=== PATIENT | female | born 1975 | race Caucasian/White ===

== ENCOUNTER → 2016-04-29 | Day surgery (SDC) | payer OTHER ==
[~2016-04-29] MED LIST: APREPITANT 40 MG CAP ONE; BUPIVACAINE HCL PF 0.75% 30 ML VIAL ONE; LACTATED RINGER'S 1000 ML INJ 1,000 ML ONE; LIDOCAINE 1.5%/EPINEPHrine 1:200,000 PF SOLN 30 ML AMP ONE; MIDAZOLAM HCL 5 MG/ML VIAL (1 ML) ONE; ONDANSETRON HCL 4 MG/2 ML VIAL IV PUSH ONE; PROPOFOL 500 MG/50 ML BTL IV ONE; ceFAZolin 2 GM PREMIX 50 ML ONE
--- NOTE | 2016-04-30 19:24 | MP ---
cc: JUAN CARLOS OSMAN DATE OF SURGERY 04/29/16 PREOPERATIVE DIAGNOSIS 1. Right shoulder rotator cuff tendon tear 2. Right shoulder impingement syndrome 3. Right shoulder labral SLAP tear. POSTOPERATIVE DIAGNOSES 1. Right shoulder rotator cuff tendon tear 2. Right shoulder impingement syndrome 3. Right shoulder labral SLAP tear. PROCEDURE 1. Right shoulder arthroscopic rotator cuff repair 2. right shoulder arthroscopic subacromial decompression 3. right shoulder arthroscopic extensive debridement of labral SLAP tear. SURGEON Dr. Dean Osman [employer]CTION WORKER PAUL Zamora ANESTHESIA General with an interscalene block. ESTIMATED BLOOD LOSS Less than 10 mL COMPLICATIONS None. IMPLANTS USED Arthrex JUSTIFICATION This patient is a 40-year-old female who sustained an injury to the right shoulder with persistent symptoms of progressive pain and weakness. She has failed nonoperative conservative treatment. MRI confirmed the above-named findings. The patient was counseled as to risks, benefits and alternatives of the above-named proposed surgical procedure. She did wish to proceed with surgery. PROCEDURE IN DETAIL A written consent obtained. The patient was identified by name, taken to the operating room, placed supine on the operating table. General anesthesia was administered as well as 2 grams of IV Ancef. She did receive preoperative interscalene block. The patient carefully turned to the left lateral decubitus position. A lateral arm roll was placed. All bony prominences and pressure points were well padded. The patient's neck was carefully monitored and kept neutral. An arthroscopic arm chiang was gently applied to right upper extremity with 10 pounds of traction placed. The right shoulder prepped and draped using isopropyl alcohol, Hibiclens solution and DuraPrep solution. A standard posterior and anterior glenohumeral arthroscope portal was established. The glenohumeral joint revealed evidence of extensive labral tearing along the anterior, superior and posterior portions of the labrum. An arthroscopic shaver was introduced into anterior portal. An extensive synovectomy and debridement was performed of the glenohumeral joint to include the 3 o'clock position up to the 12 o'clock position all the way back down to the 9 o'clock position. The biceps origin was intact. Minimal chondromalacia of the glenohumeral joint was noted. Attention was turned to the subacromial space. There was evidence of severe impingement bursitis. An arthroscopic shaver was introduced through a lateral portal. A subacromial decompression was performed. The shaver was used for perform a bursectomy. An arthroscopic bur was used to perform an acromioplasty and the cautery device was used to release the coracoacromial ligament. There was evidence of a full-thickness rotator cuff tendon tear at the supraspinatus attachment site. A bur was used to decorticate the greater tuberosity in preparation for rotator cuff tendon repair. An arthroscopic scorpion device was used to shuttle #2 fiber tape suture through the anterior exercise planner portion of the torn tendon in a horizontal mattress pattern. A #2 fiber link suture was also placed. The sutures were placed through the eyelet of an Arthrex 4.75 mm bio-swivel lock anchor. The anchor was then inserted in the greater tuberosity. There was good purchase and fixation and the rotator cuff tendon repair was probed with excellent security. At the conclusion of the surgical procedure, the arthroscopic portal was closed with 3-0 Prolene suture. Sterile dressing applied. The patient was placed in a sling and swath immobilizer. She tolerated the procedure with no intraoperative his noted. Kamari Foss, physician insurance legal assistant certified, was present during the entire procedure to include patient positioning and procedure itself. The medical necessity of a physician insurance legal assistant was indicated in the case due to the complexity of the procedure. He assisted with both manipulation of the arm and also manipulation of the camera. He assisted with shuttling of sutures and also implantation of suture anchor for purposes of rotator cuff tendon repair. MD RANCHO Maldonado/ /8:27 AM /7:01 PM
== END | disposition home or self-care (01) ==
LOC: ESDC 05:54
PROVIDERS: ATTEND Orthopaedic Surgery Sports Medicine
DX: M75.121 Complete rotator cuff tear or rupture of right shoulder, not specified as traumatic (principal); M75.41 Impingement syndrome of right shoulder; S43.431A Superior glenoid labrum lesion of right shoulder, initial encounter
CPT/HCPCS: 01630; 01991; 29823; 29826; 29827; 64417; C1713; J0690; J2250; J2405; J7120; J8501